=== PATIENT | male | born 1970 | race Caucasian/White ===

== ENCOUNTER → 2017-08-09 07:53 | Outpatient (CLI) | payer OTHER, SELFPAY ==
[2017-07-25 08:38] VITALS: BMI 38.0
--- NOTE | 2017-08-09 08:01 | PCM.CR.ITP ---
Exercise - Initial Assessment - Visit Date of Eval: 08/09/17 Session #:: 0 - initial evaluation - Stages of Change Stages of Change:: Action - Exercise Prescription Mode:: Treadmill, Rower, Airdyne, NuStep Angina with exercise?: No Target Heart Rate:: 122-131 70-75% Max PHR - Hypertension Do any of the following apply?: Yes Peak Exercise Blood Pressure:: 146/88 - Intervention Home Exercise/Activity Goal:: Moderate Exercise 30 min/day x 5 days/wk - Education Goals:: Warm-up, RPE ROSALBA Scale, S/S, Safe Exercise, Self-Monitoring - Exercise Program Goals Exercise Program Goals: Aerobic Activity >30 min Nutrition - Initial Assessment - Program Goals Nutrition Program Goals: LDL <70. Total Cholesterol <200. HDL >45. Triglycerides <150. HgbA1C <7%. BMI <25 - Visit Date of Assessment:: 08/09/17 - initial evaluation - Stages of Change Stages of Change:: Action - Lipids Total Cholesterol (mg/dL) Goal = less than 200 mg/dL: 182 - 07/24/2017 HDL Cholesterol (mg/dL) Goal = less than 45 mg/dL: 30 LDL Cholesterol (mg/dL) Goal = less than 70 mg/dL: 108 Triglycerides (mg/dL) Goal = less than 150 mg/dL: 220 - Diabetes Diabetes:: No Hgb A1C: wnl - Weight Management Height: 5 ft 9 in Weight:: 117.163 kg Body Fat %:: 38.1 - Intervention Referral to dietitian:: Yes - Patient could possibly benefit from structure weight loss program. Will attend diet classes:: Yes - Education Gave educational materials for:: Healthy eating Nutrition - 30-Day Assessment - Program Goals Nutrition Program Goals: LDL <70. Total Cholesterol <200. HDL >45. Triglycerides <150. HgbA1C <7%. BMI <25 - Diabetes Diabetes:: No Hgb A1C: wnl Nutrition - 60-Day Assessment - Program Goals Nutrition Program Goals: LDL <70. Total Cholesterol <200. HDL >45. Triglycerides <150. HgbA1C <7%. BMI <25 - Diabetes Diabetes:: No Hgb A1C: wnl Nutrition - 90-Day Assessment - Program Goals Nutrition Program Goals: LDL <70. Total Cholesterol <200. HDL >45. Triglycerides <150. HgbA1C <7%. BMI <25 - Diabetes Diabetes:: No Hgb A1C: wnl Nutrition - Final Assessment - Program Goals Nutrition Program Goals: LDL <70. Total Cholesterol <200. HDL >45. Triglycerides <150. HgbA1C <7%. BMI <25 - Diabetes Diabetes:: No Hgb A1C: wnl Tobacco - Initial Assessment - Program Goals Tobacco Program Goals: Complete smoking cessation. Attend education classes. Improve Knowledge Test score - Stage of Change Stages of Change:: Action - Learning Barriers Learning Barriers: Ready to Learn - Family Support Do you have family support?: Yes - Tobacco Use Tobacco Use: Non-smoker Do you use smokeless tobacco?: No - Intervention Smoking Cessation Referral:: No Individual Education/Counseling:: No Education Schedule Given:: Yes - Education Gave educational material for:: Coronary artery disease, Risk factors, Sexuality, Medical compliance, Cardiac A&P, Angina signs & symptoms Psychosocial - Initial Assess - Target Goals Target Goals: Assess presence or absence of depression. Using a valid screening tool, maximizes coping skills. Positive support system - Stages of Change Stages of Change:: Action - Psychosocial Test Tool Used:: HANDS Depression Questionnaire - Intervention PS - Interventions: Yes Attend Stress Management Classes, No Referral to Mental Health, No Referral to [facility] Case Management, No Referral to Physician, No Uses Stress Management Skills - Education Gave educational materials for:: Coping techniques, Signs & symptoms of depression, Stress management, Relaxation techniques - Patient/Program Goal Preventative Medication(s):: Aspirin, Clopidogrel, Beta andree, Statin/lipid - Assistive Devices Assistive Devices:: None Fall Risk Assessed:: Yes Patient Health Questionnaire 30-Day Re-eval Assessment 1. Little interest or pleasure in doing things: Not at all 2. Feeling down, depressed, or hopeless: Not at all 3. Trouble falling or staying asleep, or sleeping too much: Several days 4. Feeling tired or having little energy: Several days 5. Poor appetite or overeating: Not at all 6. Feeling bad about yourself -- or that you are a failure or have let yourself or your family down: Not at all 7. Trouble concentrating on things, such as reading the newspaper or watching television: Not at all 8. Moving or speaking so slowly that other people could have noticed. Or the opposite - being so fidgety or restless that you have been moving around a lot more than usual: Not at all 9. Thoughts that you would be better off , or of hurting yourself in some way: Not at all How difficult have these problems made it for you to do your work, take care of things at home, or get along with other people?: Not difficult at all Total Score: 2 Knowledge Test - Check your knowledge Initial The #1 cause of in the [place] each year is:: Heart disease Which of the following is a common treatment for heart disease?: All of the above The arteries that feed the heart are called:: Coronary arteries What disease increases your risk for heart disease?: Diabetes What food product raises blood cholesterol level the most?: Saturated fat The bad cholesterol in the blood is called:: LDL Hypertension is another word for:: High blood pressure A blood pressure reading of 148/88 is considered normal.: False Exercise will only benefit your health when your heart rate reaches a target level.: True Self-Efficacy 30-Day Re-eval Assessment We would like to know how confident you are in doing certain activities. Please select your confidence level for:: Select your confidence level for the following using the scale 1-10 where 1 is not at all confident and 10 is totally confident. Your score is the average of all 6 responses. Fatigue: How confident are you that you can keep the fatigue caused by your disease from interfering with the things you want to do? Select Number: 9 Physical Discomfort or Pain: How confident are you that you can keep the physical discomfort or pain of your disease from interfering with the things you want to do? Select Number: 9 Emotional Distress: How confident are you that you can keep the emotional distress caused by your disease from interfering with the things you want to do? Select Number: 9 Other Symptoms or Health Problems: How confident are you that you can keep other symptoms or health problems from interfering with the things you want to do? Select Number: 7 Different Tasks and Activities: How confident are you that you can do the different tasks and activities needed to manage your health condition so as to reduce your need to see a doctor? Select Number: 9 Medication: How confident are you that you can do things other than just taking medication to reduce how much your illness affects your everyday life? Select Number: 9 Total Score:: 8 Nutrition Survey - Nutrition Survey Instructions Scoring Instructions: Scoring is as follows: Yes = 1 points. No = 0 point. Patient score that is >/=12 is considered to be at potential nutritional risk and could benefit from a referral to a registered dietitian. - Nutrition Survey Initial Have you lost >10 lbs over the past 2 months without trying?: No Are you following a special diet at home for diabetes, low fat, or low salt?: Yes - Just joined weight watchers. Are you interested in meeting with a dietitian for help understanding your diet?: Yes Do you eat less than 3 meals a day?: No Do you eat fatty meats (bingham, sausage, ribs, etc), fried foods, desserts, large amounts of salad dressings, margarine, butter, or cheese most days?: Yes Do you have food allergies? [Enter types in comment field]: No Do you eat in restaurants more than 3 times a week?: No Do you season food with salt, seasoning salt, or garlic salt?: Yes Do you used canned, boxed, frozen meals, or soups, seasoning packets?: No Total Score:: 4 Cardiac Rehabilitation Goals - Cardiac Rehab Goals Cardiac Rehabilitation Goals: 1. Maintain the individual as the primary focus of care. 2. To improve the patient's quality of life. 3. Identification of cardiac risk factors and provide cardiac risk factor management. 4. Enhance the psychosocial status of the patient. 5. Reconditioning enough to allow the patient to resume customary activities. 6. Control symptoms of cardiac disease - Scale Scale for measuring improvement of personal goals: Enter appropriate number in Comments. 2 = Unchanged. 3 = Slightly Better. 4 = Moderate Improvement. 5 = Met my Goal 30-Day Re-eval Assessment Personal Goals: 30-day Re-assessment: Improve energy level, Participate in home exercise program, Improve muscle strength and endurance, Improve diet and eating habits (eat healthier), Control risk factors (learn risk factor modification)
--- NOTE | 2017-08-09 08:02 | PCM.CR.HP2 ---
CR - History & Physical - General Arrival date:: 08/09/17 Arrival time:: 08:02 Date of Admission: 08/09/17 Referring Physician: Dr. Juan A Jean-Baptiste Primary Diagnosis: Unstable angina w/PCI-NEGRITO 07/24/2017 - History of Present Cardiac Event Onset Date: Enter Onset Date of cardiac illnesses in Comment field below MO:: Yes - NSTEMI 07/24/2017 PTCA:: Yes - 07/24/2017 Type of Symptoms:: Patient described mid sternal pain, described as a heaviness, and cold sweat. Interventions with present event:: Admitted to floor did blood work and then scheduled a heart cath. Were there any complications?: none - Medications Home Medications: Ambulatory Orders Medication Instructions Recorded Amiodarone HCl [Cordarone] 200 mg PO TID #90 tab 07/26/17 Aspirin E.C. [Ecotrin] 81 mg PO DAILY@0800 tab 07/26/17 Atorvastatin Calcium [Lipitor] 80 mg PO QHS #30 tab 07/26/17 Carvedilol [Coreg (Beta Janett)] 6.25 mg PO BID #60 tab 07/26/17 Isosorbide Mononitrate [Imdur] 30 mg PO DAILY #30 tab 07/26/17 Lisinopril [Zestril] 10 mg PO DAILY #30 tab 07/26/17 Nitroglycerin [Nitrostat] 0.4 mg SUBLINGUAL Q5M PRN #20 tab 07/26/17 Temazepam [Restoril] 15 mg PO QHS PRN PRN #30 cap 07/26/17 Ticagrelor [Brilinta] 90 mg PO BID #60 tab 07/26/17 - Allergies Allergies/Adverse Reactions: Allergies No Known Allergies Allergy (Verified 07/23/17 19:18) - Sleep Disorder Evaluation Hx of Sleep Apnea: No Do you snore loudly (louder than talking or can be heard through closed doors)?: Yes - has minimized since procedure but has not completely gone away. Do you often feel tired/ fatigued/ sleepy during daytime?: No Has anyone observed you stop breathing during sleep?: Yes History of Hypertension (for STOP score): Yes - chronic history of HTN. STOP Results: Positive Advanced Directives - Advanced Directives Power of Boiler Attendant: No Living Will: No Advance Directives Information Provided: Yes - on admission Advance Directives on File: No DNR Order?:: No Past Medical History - Problems and Co-Morbidities Problems & Co-Morbidities: Dyslipidemia, Obesity, Hypertension, - - unstable angina, elevated cardiac enzymes - Other Other: Vision/Eye Problems - wears contact lenses - Cardiology Procedures/Interventions Cardiology Procedures/Interventions: Heart Catheterization, Echocardiogram - Past Surgical History Surgical History: - - [place] teeth extraction. and colonoscopy procedure. - Family History Summary Additional Family History: family history diabetes, cardiac tumor that required open heart surgery. Review of Systems - Review of Systems Hints: Right click = Denies (Slash). Left click = Reports ([place]) Review of Present Symptoms: Reports: Shortness of Breath with Exertion - if exert myself to much., Dizziness/Lightheadedness - a little possible due to new medications, Appetite - Normal, Appetite - Special Diet - on weight watchers program with ., Sleep - Normal. Denies: Shortness of Breath at Rest, Angina, Fatigue, Heart Arrhythmia/Irregularities, Sexual Changes Risk Factor Assessment - Chief Complaint Chief Complaint: The patient is a male 47 year old who presents to cardiac rehab today under the care of Dr. Juan A Jean-Baptiste following recent NSTEMI and PCI-NEGRITO on 07/24/2017. - Pulse Pulse Rate: 74 - SpO2 95% - Hypertension Blood Pressure Sitting - Right Arm: 112/66 Blood Pressure Sitting - Left Arm: 122/78 - Blood Cholesterol/Lipids Total Cholesterol (mg/dL) Goal = less than 200 mg/dL: 182 - 07/24/2017 HDL Cholesterol (mg/dL) Goal = less than 40 mg/dL: 30 LDL Cholesterol (mg/dL) Goal = less than 70 mg/dL: 108 Triglycerides (mg/dL) Goal = less than 150 mg/dL: 220 - Diabetes Nutrition Referral for Diabetes: No - Obesity Height: 5 ft 9 in Weight:: 117.163 kg Weight in Pounds: 258.3 lbs Body Mass Index (BMI): 38.1 Nutritional Referral for Obesity: Yes - Patient could benefit from a structured weight loss program. - Physical Inactivity Physical Inactivity: Recreational activity - walking up to three times daily up to 15-20 minutes. - Risk Stratification Risk Guidelines: Lowest Risk: Risk Factor for Smoking, Risk Factor for Dyslipidemia, Risk Factor for Diabetes, Risk Factor for Hypertension, Risk Factor for Sedentary Lifestyle, Risk Factor for Depression, Highest Risk: Risk Factor for Obesity - For Smoking Smoking Risk Guidelines: Smoking Low Risk: None or quit greater than 6 months ago. Smoking Moderate Risk: Smoker or quit 6 months or less ago. Smoking High Risk: Smoker - For Dyslipidemia Dyslipidemia Risk Guidelines: Low Risk: Moderate Risk: High Risk: 15-25% fat 25.1-29% fat >/= 30% fat. <7% sat fat 7-9% sat fat >9% sat fat. <150 mg chol 150-299 mg chol >/= 300 mg chol. LDL <100 LDL 100-129 LDL >/= 130. Chol/HDL ratio <5.0 Chol/HDL ratio 5.0-6.0 Chol/HDL ratio >6.0. Triglycerides <100 Triglycerides 100-149 Triglycerides >/= 150 - For Diabetes Mellitus Diabetes Risk Guidelines: Diabetes Low Risk: HgA1c <6.5% and/or FBG <120. Diabetes Moderate Risk: HgA1c 6.6-7.9% and/or FBG 120-180. Diabetes High Risk: HgA1c >/= 8% and/or FBG >180 - For Obesity/Overweight Obesity/Overweight Risk Guidelines: Obesity Low Risk: BMI <25.0. Obesity Moderate Risk: BMI 25-29.9. Obesity High Risk: BMI >/= 30.0 - For Hypertension Hypertension Risk Guidelines: Hypertension Low Risk: Systolic <120 and Diastolic <80. Hypertension Moderate Risk: Systolic 120-139 and Diastolic 80-89. Hypertension High Risk: Systolic >/= 140 and Diastolic >/= 90 - For Sedentary Lifestyle Sedentary Lifestyle Risk Guidelines: Sedentary Lifestyle Low Risk: >/= 1,500 kcal/week. Sedentary Lifestyle Moderate Risk: 700-1,499 kcal/week. Sedentary Lifestyle High Risk: < 700 kcal/week - For Depression Depression Risk Guidelines: Depression Low Risk: Not clinically depressed. Depression Moderate Risk: Mildly depressed. Depression High Risk: Clinically depressed Social History - Smoking History Smoking Status: Never smoker Hx Tobacco Use: No Hx Smoking Exposure: No - Alcohol Use Alcohol Usage: No - Substance Abuse Hx Substance Use: No - Occupation Occupation (List type of work in comments):: Employed Hours worked per day:: 8 Returned to work on:: 08/01/17 - Hobbies, Recreation, Social Activities Hobbies: Watch TV, Hiking, Walking, Other - video games, TV, Recreational Activities: I am able to engage in all my recreational activities, I am able to engage in most, but not all activities Marital Status - Status Marital Status: - Current Living Arrangements Living Environment:: Spouse - Children How many children do you have?: 0 - Safety Do you feel safe in your surroundings?: Yes
--- NOTE | 2017-08-09 08:13 | CR.HP_ITS ---
CR - History & Physical - General Arrival date:: 08/09/17 Arrival time:: 08:02 Date of Admission: 08/09/17 Referring Physician: Dr. Juan A Jean-Baptiste Primary Diagnosis: Unstable angina w/PCI-NEGRITO 07/24/2017 - History of Present Cardiac Event Onset Date: Enter Onset Date of cardiac illnesses in Comment field below MD:: Yes - NSTEMI 07/24/2017 PTCA:: Yes - 07/24/2017 Type of Symptoms:: Patient described mid sternal pain, described as a heaviness , and cold sweat. Interventions with present event:: Admitted to floor did blood work and then scheduled a heart cath. Were there any complications?: none - Medications Home Medications: Ambulatory Orders Medication Instructions Recorded Amiodarone HCl [Cordarone] 200 mg PO TID #90 tab 07/26/17 Aspirin E.C. [Ecotrin] 81 mg PO DAILY@0800 tab 07/26/17 Atorvastatin Calcium [Lipitor] 80 mg PO QHS #30 tab 07/26/17 Carvedilol [Coreg (Beta Janett)] 6.25 mg PO BID #60 tab 07/26/17 Isosorbide Mononitrate [Imdur] 30 mg PO DAILY #30 tab 07/26/17 Lisinopril [Zestril] 10 mg PO DAILY #30 tab 07/26/17 Nitroglycerin [Nitrostat] 0.4 mg SUBLINGUAL Q5M PRN #20 tab 07/26/17 Temazepam [Restoril] 15 mg PO QHS PRN PRN #30 cap 07/26/17 Ticagrelor [Brilinta] 90 mg PO BID #60 tab 07/26/17 - Allergies Allergies/Adverse Reactions: Allergies No Known Allergies Allergy (Verified 07/23/17 19:18) - Sleep Disorder Evaluation Hx of Sleep Apnea: No Do you snore loudly (louder than talking or can be heard through closed doors)? : Yes - has minimized since procedure but has not completely gone away. Do you often feel tired/ fatigued/ sleepy during daytime?: No Has anyone observed you stop breathing during sleep?: Yes History of Hypertension (for STOP score): Yes - chronic history of HTN. STOP Results: Positive Advanced Directives - Advanced Directives Power of School Bus Driver/Teacher Assistant: No Living Will: No Advance Directives Information Provided: Yes - on admission Advance Directives on File: No DNR Order?:: No Past Medical History - Problems and Co-Morbidities Problems & Co-Morbidities: Dyslipidemia, Obesity, Hypertension, - - unstable angina, elevated cardiac enzymes - Other Other: Vision/Eye Problems - wears contact lenses - Cardiology Procedures/Interventions Cardiology Procedures/Interventions: Heart Catheterization, Echocardiogram - Past Surgical History Surgical History: - - [place] teeth extraction. and colonoscopy procedure. - Family History Summary Additional Family History: family history diabetes, cardiac tumor that required open heart surgery. Review of Systems - Review of Systems Hints: Right click = Denies (Slash). Left click = Reports ([place]) Review of Present Symptoms: Reports: Shortness of Breath with Exertion - if exert myself to much., Dizziness/Lightheadedness - a little possible due to new medications, Appetite - Normal, Appetite - Special Diet - on weight watchers program with ., Sleep - Normal. Denies: Shortness of Breath at Rest, Angina , Fatigue, Heart Arrhythmia/Irregularities, Sexual Changes Risk Factor Assessment - Chief Complaint Chief Complaint: The patient is a male 47 year old who presents to cardiac rehab today under the care of Dr. Juan A Jean-Baptiste following recent NSTEMI and PCI -NEGRITO on 07/24/2017. - Pulse Pulse Rate: 74 - SpO2 95% - Hypertension Blood Pressure Sitting - Right Arm: 112/66 Blood Pressure Sitting - Left Arm: 122/78 - Blood Cholesterol/Lipids Total Cholesterol (mg/dL) Goal = less than 200 mg/dL: 182 - 07/24/2017 HDL Cholesterol (mg/dL) Goal = less than 40 mg/dL: 30 LDL Cholesterol (mg/dL) Goal = less than 70 mg/dL: 108 Triglycerides (mg/dL) Goal = less than 150 mg/dL: 220 - Diabetes Nutrition Referral for Diabetes: No - Obesity Height: 5 ft 9 in Weight:: 117.163 kg Weight in Pounds: 258.3 lbs Body Mass Index (BMI): 38.1 Nutritional Referral for Obesity: Yes - Patient could benefit from a structured weight loss program. - Physical Inactivity Physical Inactivity: Recreational activity - walking up to three times daily up to 15-20 minutes. - Risk Stratification Risk Guidelines: Lowest Risk: Risk Factor for Smoking, Risk Factor for Dyslipidemia, Risk Factor for Diabetes, Risk Factor for Hypertension, Risk Factor for Sedentary Lifestyle, Risk Factor for Depression, Highest Risk: Risk Factor for Obesity - For Smoking Smoking Risk Guidelines: Smoking Low Risk: None or quit greater than 6 months ago. Smoking Moderate Risk: Smoker or quit 6 months or less ago. Smoking High Risk: Smoker - For Dyslipidemia Dyslipidemia Risk Guidelines: Low Risk: Moderate Risk: High Risk: 15-25% fat 25.1-29% fat >/= 30% fat. <7% sat fat 7-9% sat fat >9% sat fat. <150 mg chol 150-299 mg chol >/= 300 mg chol. LDL <100 LDL 100-129 LDL >/= 130. Chol/HDL ratio <5.0 Chol/HDL ratio 5.0-6.0 Chol/HDL ratio >6.0. Triglycerides <100 Triglycerides 100-149 Triglycerides >/= 150 - For Diabetes Mellitus Diabetes Risk Guidelines: Diabetes Low Risk: HgA1c <6.5% and/or FBG <120. Diabetes Moderate Risk: HgA1c 6.6-7.9% and/or FBG 120-180. Diabetes High Risk: HgA1c >/= 8% and/or FBG >180 - For Obesity/Overweight Obesity/Overweight Risk Guidelines: Obesity Low Risk: BMI <25.0. Obesity Moderate Risk: BMI 25-29.9. Obesity High Risk: BMI >/= 30.0 - For Hypertension Hypertension Risk Guidelines: Hypertension Low Risk: Systolic <120 and Diastolic <80. Hypertension Moderate Risk: Systolic 120-139 and Diastolic 80-89. Hypertension High Risk: Systolic >/= 140 and Diastolic >/= 90 - For Sedentary Lifestyle Sedentary Lifestyle Risk Guidelines: Sedentary Lifestyle Low Risk: >/= 1 ,500 kcal/week. Sedentary Lifestyle Moderate Risk: 700-1,499 kcal/week. Sedentary Lifestyle High Risk: < 700 kcal/week - For Depression Depression Risk Guidelines: Depression Low Risk: Not clinically depressed. Depression Moderate Risk: Mildly depressed. Depression High Risk: Clinically depressed Social History - Smoking History Smoking Status: Never smoker Hx Tobacco Use: No Hx Smoking Exposure: No - Alcohol Use Alcohol Usage: No - Substance Abuse Hx Substance Use: No - Occupation Occupation (List type of work in comments):: Employed Hours worked per day:: 8 Returned to work on:: 08/01/17 - Hobbies, Recreation, Social Activities Hobbies: Watch TV, Hiking, Walking, Other - video games, TV, Recreational Activities: I am able to engage in all my recreational activities, I am able to engage in most, but not all activities Marital Status - Status Marital Status: - Current Living Arrangements Living Environment:: Spouse - Children How many children do you have?: 0 - Safety Do you feel safe in your surroundings?: Yes
[2017-08-09 08:30] VITALS: BP 112/66; BP 122/78; PULSE 74; BMI 38.1
[2017-08-09 09:11] VITALS: BP 146/88
== END ==
PROVIDERS: Family Provider Family Medicine; PCP Family Medicine; Visit Provider Internal Medicine Cardiovascular Disease
DX: I25.2 Old myocardial infarction (principal)

== ENCOUNTER → 2017-09-17 09:01 | Outpatient (CLI) | payer OTHER, SELFPAY ==
[2017-07-25 08:38] VITALS: BMI 38.0
[2017-09-17 10:36] LABS: Hemoglobin A1c 5.4 % (4.2-6.3)
[2017-09-17 10:42] LABS: AST(SGOT) 32 U/L (15-37); Alanine Aminotransfer ALT/SGPT 56 U/L (16-61); Albumin, Serum 3.8 g/dL (3.2-5.0); Alkaline Phosphatase 136 U/L (45-117); Bilirubin, Direct 0.14 mg/dL (0.00-0.30); Cholesterol 84 mg/dL (200); Globulin 3.4 g/dL (2.2-4.2); High Density Lipoprotein 32 mg/dL; Protein, Total 7.2 g/dL (6.4-8.2); Thyroid Stim Hormone (TSH) 3.92 uIU/mL (0.358-3.74); Triglycerides 108 mg/dL; Very Low Density Lipoprotein 22 mg/dL (5-40)
== END ==
PROVIDERS: Family Provider Family Medicine; PCP Family Medicine; Visit Provider Family Medicine
DX: E78.5 Hyperlipidemia, unspecified (principal); I10 Essential (primary) hypertension; R73.01 Impaired fasting glucose; I25.10 Atherosclerotic heart disease of native coronary artery without angina pectoris
CPT/HCPCS: 36415; 80061; 80076; 83036; 84443

== ENCOUNTER → 2017-11-24 11:21 | Outpatient (CLI) | payer OTHER, SELFPAY ==
[2017-07-25 08:38] VITALS: BMI 38.0
== END ==
PROVIDERS: Family Provider Family Medicine; PCP Family Medicine; Visit Provider Physician Assistant Medical
DX: I47.2 Ventricular tachycardia (principal)
CPT/HCPCS: 93225; 93226

== ENCOUNTER → 2018-05-29 10:22 | Outpatient (CLI) | payer OTHER, SELFPAY ==
[2017-07-25 08:38] VITALS: BMI 38.0
[2018-05-29 09:42] VITALS: BMI 36.9
[2018-05-29 11:49] LABS: AST(SGOT) 28 U/L (15-37); Alanine Aminotransfer ALT/SGPT 59 U/L (16-61); Albumin, Serum 3.6 g/dL (3.2-5.0); Alkaline Phosphatase 157 U/L (45-117); Bilirubin, Direct 0.15 mg/dL (0.00-0.30); Cholesterol 110 mg/dL (200); Globulin 3.4 g/dL (2.2-4.2); High Density Lipoprotein 29 mg/dL; Triglycerides 154 mg/dL; Very Low Density Lipoprotein 31 mg/dL (5-40)
== END ==
PROVIDERS: Internal Medicine Cardiovascular Disease; Family Provider Family Medicine; PCP Family Medicine; Referring Provider Physician Assistant Medical; Visit Provider Physician Assistant Medical
DX: I25.10 Atherosclerotic heart disease of native coronary artery without angina pectoris (principal); I10 Essential (primary) hypertension; E78.00 Pure hypercholesterolemia, unspecified
CPT/HCPCS: 36415; 80061; 80076

== ENCOUNTER → 2018-12-23 08:49 | Outpatient (CLI) | payer OTHER, SELFPAY ==
[2017-07-25 08:38] VITALS: BMI 38.0
[2018-12-18 09:07] VITALS: BMI 38.2
[2018-12-23 09:49] LABS: AST(SGOT) 26 U/L (15-37); Alanine Aminotransfer ALT/SGPT 49 U/L (16-61); Albumin, Serum 3.4 g/dL (3.2-5.0); Alkaline Phosphatase 164 U/L (45-117); Bilirubin, Direct 0.13 mg/dL (0.00-0.30); Cholesterol 76 mg/dL (200); Globulin 3.4 g/dL (2.2-4.2); High Density Lipoprotein 28 mg/dL; Protein, Total 6.8 g/dL (6.4-8.2); Triglycerides 141 mg/dL; Very Low Density Lipoprotein 28 mg/dL (5-40)
== END ==
PROVIDERS: Family Provider Family Medicine; PCP Family Medicine; Referring Provider Internal Medicine Cardiovascular Disease; Visit Provider Internal Medicine Cardiovascular Disease
DX: E78.00 Pure hypercholesterolemia, unspecified (principal)
CPT/HCPCS: 36415; 80061; 80076

== ENCOUNTER → 2019-07-02 08:20 | Outpatient (CLI) | payer OTHER, SELFPAY ==
[2017-07-25 08:38] VITALS: BMI 38.0
[2019-06-29 14:24] VITALS: BMI 39.7
[2019-07-02 09:34] LABS: AST(SGOT) 33 U/L (15-37); Alanine Aminotransfer ALT/SGPT 63 U/L (16-61); Albumin, Serum 3.8 g/dL (3.2-5.0); Alkaline Phosphatase 160 U/L (45-117); Bilirubin, Direct 0.12 mg/dL (0.00-0.30); Cholesterol 134 mg/dL (200); Globulin 3.5 g/dL (2.2-4.2); High Density Lipoprotein 33 mg/dL; Protein, Total 7.3 g/dL (6.4-8.2); Triglycerides 239 mg/dL; Very Low Density Lipoprotein 48 mg/dL (5-40)
== END ==
PROVIDERS: Family Provider Family Medicine; PCP Family Medicine; Referring Provider Physician Assistant Medical; Visit Provider Physician Assistant Medical
DX: I21.4 Non-ST elevation (NSTEMI) myocardial infarction (principal); I10 Essential (primary) hypertension; I25.10 Atherosclerotic heart disease of native coronary artery without angina pectoris; E78.00 Pure hypercholesterolemia, unspecified
CPT/HCPCS: 36415; 80061; 80076

== ENCOUNTER → 2020-03-14 | Outpatient (CLI) | payer OTHER, SELFPAY ==
[2017-07-25 08:38] VITALS: BMI 38.0
[2020-03-14 09:12] VITALS: BMI 38.7
[2020-03-14 11:02] LABS: AST(SGOT) 28 U/L (15-37); Alanine Aminotransfer ALT/SGPT 47 U/L (16-61); Albumin, Serum 3.9 g/dL (3.2-5.0); Alkaline Phosphatase 160 U/L (45-117); Bilirubin, Direct 0.22 mg/dL (0.00-0.30); Cholesterol 123 mg/dL (200); Globulin 3.5 g/dL (2.2-4.2); High Density Lipoprotein 31 mg/dL; Protein, Total 7.4 g/dL (6.4-8.2); Triglycerides 157 mg/dL; Very Low Density Lipoprotein 31 mg/dL (5-40)
== END | disposition home or self-care (01) ==
LOC: LAB 09:46
PROVIDERS: PCP Family Medicine; Referring Provider Internal Medicine Cardiovascular Disease; Visit Provider Internal Medicine Cardiovascular Disease
DX: E78.00 Pure hypercholesterolemia, unspecified (principal)
CPT/HCPCS: 36415; 80061; 80076

== ENCOUNTER → 2021-03-06 09:06 | Outpatient (CLI) | payer OTHER, SELFPAY ==
[2017-07-25 08:38] VITALS: BMI 38.0
[2021-03-06 09:47] LABS: AST(SGOT) 47 U/L (15-37); Alanine Aminotransfer ALT/SGPT 55 U/L (16-61); Albumin, Serum 3.6 g/dL (3.2-5.0); Alkaline Phosphatase 114 U/L (45-117); Bilirubin, Direct 0.07 mg/dL (0.00-0.30); Cholesterol 223 mg/dL (200); Globulin 3.9 g/dL (2.2-4.2); High Density Lipoprotein 31 mg/dL; Protein, Total 7.5 g/dL (6.4-8.2); Triglycerides 277 mg/dL; Very Low Density Lipoprotein 55 mg/dL (5-40)
== END ==
LOC: LAB 09:07
PROVIDERS: PCP Family Medicine; Referring Provider Internal Medicine Cardiovascular Disease; Visit Provider Internal Medicine Cardiovascular Disease
DX: E78.00 Pure hypercholesterolemia, unspecified (principal)
CPT/HCPCS: 36415; 80061; 80076

== ENCOUNTER → 2022-03-22 | Outpatient (CLI) | payer OTHER, SELFPAY ==
[2017-07-25 08:38] VITALS: BMI 38.0
[2022-03-22 13:08] LABS: AST(SGOT) 29 U/L (15-37); Alanine Aminotransfer ALT/SGPT 64 U/L (16-61); Albumin, Serum 3.7 g/dL (3.2-5.0); Alkaline Phosphatase 172 U/L (45-117); Bilirubin, Direct 0.12 mg/dL (0.00-0.30); Cholesterol 95 mg/dL (200); Globulin 3.7 g/dL (2.2-4.2); High Density Lipoprotein 29 mg/dL; Protein, Total 7.4 g/dL (6.4-8.2); Triglycerides 111 mg/dL; Very Low Density Lipoprotein 22 mg/dL (5-40)
== END | disposition home or self-care (01) ==
LOC: LAB 09:46
PROVIDERS: PCP Family Medicine; Referring Provider Internal Medicine Cardiovascular Disease; Visit Provider Internal Medicine Cardiovascular Disease
DX: I25.10 Atherosclerotic heart disease of native coronary artery without angina pectoris (principal); E78.00 Pure hypercholesterolemia, unspecified; Z95.5 Presence of coronary angioplasty implant and graft
CPT/HCPCS: 36415; 80061; 80076

== ENCOUNTER → 2023-07-08 | Outpatient (CLI) | payer BC, SELFPAY ==
[2017-07-25 08:38] VITALS: BMI 38.0
--- OUTSIDE RECORDS SUMMARY | 2023-07-08 09:45 | XMS RPT_ITS | CCD ---
Author Name Unknown Address [address] [place] [address] Organization [facility] Care Team Providers Care Substation Operator Automatic Name Role Phone Anneliese MAJOR, Jerry Monterroso Unavailable [phone] Stacey Joseph Unavailable Unavailable Medications Completed/Discontinued Medications Medication Drug Class(es) Dates Sig (Normalized) Sig (Original) lisinopril 20 mg oral tablet (2 sources) Angiotensin Converting Enzyme Inhibitor Start: 02-14-2017 take 1 tablet by mouth once daily LISINOPRIL 20 MG TABS One tablet by mouth daily LISINOPRIL [id number] Jerry Coy MD Problems Active Problems Problem Classification Problem Date Documented Date Episodic/Chronic Esophageal disorders (2 sources) Gastroesophageal reflux disease; Translations: [Gastro-esophageal reflux disease without esophagitis] Onset: 02-14-2017 02-14-2017 Chronic Essential hypertension (2 sources) Hypertensive disorder; Translations: [Essential (primary) hypertension] Onset: 02-14-2017 02-14-2017 Chronic Past or Other Problems Problem Classification Problem Date Documented Da te Episodic/Chronic Residual codes; unclassified (2 sources) Family history of cancer of colon; Translations: [Family history of malignant neoplasm of digestive organs] Onset: 02-14-2017 02-14-2017 Episodic Results Test Name Value Interpretation Reference Range Facil ity Vital Signs Date Time Vital Sign Value Performing Clinician Facility 02-14-2017 08:45-0400 BMI (Body Mass Index) 35.87 kg/m2 Jerry Coy MD [facility] Work Phone: 02-14-2017 08:45-0400 BP Diastolic 98 mm[Hg] Jerry Coy MD [facility] Work Phone: 02-14-2017 08:45-0400 BP Systolic 156 mm[Hg] Jerry Coy MD [facility] Work Phone: 02-14-2017 08:45-0400 Height 177.8 cm Jerry Coy MD [facility] Work Phone: 02-14-2017 08:45-0400 Pulse (Heart Rate) 70 /min Jerry Coy MD [facility] [facility] Work Phone: 02-14-2017 08:45-0400 Respiratory Rate 18 /min Jerry Coy MD [facility] [employer] Work Phone: 02-14-2017 08:45-0400 Weight 113.4 kg Jerry Coy MD [facility] [employer] [facility] Work Phone: Plan of Treatment Date Care Activity Detail Author Start: 03-04-2017 End: 03-04-2017 Appointment Appointment [facility] Work Phone: Start: 02-14-2017 End: 02-14-2017 Appointment Appointment [facility] Work Phone: Start: 02-14-2017 End: 02-15-2017 Colonoscopy flx dx w/collj spec when pfrmd Colonoscopy [facility] [employer] Work Phone: Summary Purpose Family History No Family History Records Found Advance Directives No Advanced Directives Records Found Additional Source Comments (unrecognized sect ion and content) No Status Records Found INFORMATION SOURCE (unrecogn ized section and content) FOR RECORDS PERTAINING TO PATIENTS WHO ARE OR HAVE BEEN ENROLLED IN A CHEMICAL DEPENDENCY/SUBSTANCEABUSE PROGRAM, SOME INFORMATION MAY BE OMITTED. This clinical summary was aggregated from multiple sources. Caution should be exercised in using it in the provision of clinical care. This summary normalizes information from multiple sources, and as a consequence, information in this document may materially change the coding, format and clinical context of patient data. In addition, data may be omitted in some cases. CLINICAL DECISIONS SHOULD BE BASED ON THE PRIMARY CLINICAL RECORDS. [facility] [employer] [facility]. provides no warranty or guarantee of the accuracy or completeness of information in this document.
[2023-07-08 09:59] LABS: AST(SGOT) 42 U/L (15-37); Alanine Aminotransfer ALT/SGPT 69 U/L (16-61); Albumin, Serum 3.7 g/dL (3.2-5.0); Alkaline Phosphatase 160 U/L (45-117); Anion Gap 4 (5-15); BUN 14 mg/dL (7-18); BUN/Creat Ratio 16.6 RATIO (10-20); Calcium,Total 9.3 mg/dL (8.5-10.1); Chloride 105 mmol/L (98-107); Cholesterol 129 mg/dL (200); Creatinine, Serum 0.84 mg/dL (0.70-1.30); EST Glomerular Filtration Rate 102 mL/min (>60); Est Glom Filt Rate - Afr Amer 124 mL/min (>60); Globulin 3.7 g/dL (2.2-4.2); Glucose 325 mg/dL (74-106); High Density Lipoprotein 31 mg/dL; Potassium 4.1 mmol/L (3.5-5.1); Protein, Total 7.4 g/dL (6.4-8.2); Sodium Level 136 mmol/L (136-145); Triglycerides 291 mg/dL; Very Low Density Lipoprotein 58 mg/dL (5-40)
== END | disposition home or self-care (01) ==
PROVIDERS: PCP Family Medicine; Referring Provider Nurse Practitioner Family; Visit Provider Nurse Practitioner Family
DX: E78.00 Pure hypercholesterolemia, unspecified (principal); I10 Essential (primary) hypertension; Z95.5 Presence of coronary angioplasty implant and graft
CPT/HCPCS: 36415; 80048; 80061; 80076

== ENCOUNTER → 2024-04-10 | Outpatient (CLI) | payer BC, SELFPAY ==
[2017-07-25 08:38] VITALS: BMI 38.0
[2024-04-10 12:56] LABS: Hemoglobin A1c 8.3 % (3.8-5.6)
[2024-04-10 13:07] LABS: AST(SGOT) 38 U/L (15-37); Alanine Aminotransfer ALT/SGPT 80 U/L (16-61); Albumin, Serum 3.7 g/dL (3.2-5.0); Alkaline Phosphatase 156 U/L (45-117); Anion Gap 8 (5-15); BUN 16 mg/dL (7-18); BUN/Creat Ratio 20.6 RATIO (10-20); Bilirubin, Direct 0.21 mg/dL (0.00-0.30); Calcium,Total 9.1 mg/dL (8.5-10.1); Chloride 104 mmol/L (98-107); Cholesterol 94 mg/dL (200); Creatinine, Serum 0.78 mg/dL (0.70-1.30); EST Glomerular Filtration Rate 112 mL/min (>60); Est Glom Filt Rate - Afr Amer 135 mL/min (>60); Globulin 3.4 g/dL (2.2-4.2); Glucose 253 mg/dL (74-106); High Density Lipoprotein 34 mg/dL; PSA,Total - Annual Screen 0.49 ng/mL (0.00-4.00); Protein, Total 7.1 g/dL (6.4-8.2); Sodium Level 137 mmol/L (136-145); Triglycerides 147 mg/dL; Very Low Density Lipoprotein 29 mg/dL (5-40)
== END | disposition home or self-care (01) ==
LOC: BFHLAB 08:55
PROVIDERS: PCP Family Medicine; Referring Provider Family Medicine; Visit Provider Family Medicine
DX: Z51.81 Encounter for therapeutic drug level monitoring (principal); E11.65 Type 2 diabetes mellitus with hyperglycemia; Z12.5 Encounter for screening for malignant neoplasm of prostate; I25.10 Atherosclerotic heart disease of native coronary artery without angina pectoris; I10 Essential (primary) hypertension
CPT/HCPCS: 36415; 80048; 80061; 80076; 83036; 84153; G0103

== ENCOUNTER 2024-06-12 06:30 | Day surgery (SDC) | payer BC, SELFPAY ==
[2017-07-25 08:38] VITALS: BMI 38.0
[2024-06-12] VITALS (7 sets, daily range): BP systolic 111–151; BP diastolic 80–95; PULSE 87–96; RESP 16–18; TEMP 36.6–37.5; O2SAT 93–94; BMI 36.4
--- NOTE | 2024-06-12 07:23 | PRE.ANES_ITS ---
ASA Classification* ASA Classification ASA Classification: 3 Assessment & Plan Anesthesia* Anesthesia Assessment Anesthesia Assessment: Discussed sedation and/or anesthesia options, risks, benefits, and alternatives with patient/parents/legal guardian/POA. Questions invited. The patient/parents/legal guardian/POA seems to understand and agrees to proceed with anesthesia plan. Reviewed the physical assessment, medical history, allergy history and patient home medications list prior to surgery/procedure/anesthetic and documented any changes. Performed airway and anesthesia risk assessments. Anesthesia Type Anesthesia Type: MAC History Source History Obtained from:: Patient and Chart Anesthesia Focused Assessment* Temperature: 97.8 F Pulse Rate: 87 Blood Pressure: 151/95 Respiratory Rate: 16 Pulse Ox: 93 Oxygen Delivery Method: Room Air Airway Assessment Mouth opens: >3 cm Mallampati Score: IV Teeth Condition: Intact Neck Range of motion (ROM): Full ROM Focused Labs Anesthesia Preop lab: CBC WBC 13.1 K/mm3 (4.4-11.0) H 07/25/17 03:40 RBC 4.32 M/mm3 (4.6-6.2) L 07/25/17 03:40 Hgb 12.6 g/dl (13.0-16.5) L 07/25/17 03:40 Hct 36.9 % (40-54) L 07/25/17 03:40 Plt Count 172 K/mm3 (150-450) 07/25/17 03:40 CHEMISTRY Potassium 4.0 mmol/L (3.5-5.1) 04/10/24 08:55 Sodium 137 mmol/L (136-145) 04/10/24 08:55 Magnesium 2.1 mg/dL (1.6-2.6) 07/26/17 05:30 BUN 16 mg/dL (7-18) 04/10/24 08:55 Creatinine 0.78 mg/dL (0.70-1.30) 04/10/24 08:55 Glucose 253 mg/dL (74-106) H 04/10/24 08:55 TSH 3.92 uIU/mL (0.358-3.74) H 09/17/17 09:09 COAG Pre-Assessment Diagnosis/Proposed Procedure Planned Operative Procedure(s): CSCOPE Anesthesia History Anesthesia History - electronic imager: Anesthesia History - electronic imager Hx Hospitalization No 06/07/24 09:52 Any Problems With Anesthesia No 06/07/24 09:52 Cholinesterase deficiency No 06/07/24 09:52 You/Your Family Experience No 06/07/24 09:52 fever (hyperthermia) with Relationship Recent Exposure to Contagious No 06/12/24 06:51 Disease Does patient have nerve No 06/07/24 09:52 stimulator Patient instructed to have device shut off --Does patient have Pacemaker No 06/12/24 06:51 or ICD? When Was Last Pacemaker Check QUESTION #4 FULL TEXT: You/Your Family Experience fever (hyperthermia) with Anesthesia Last Oral Intake Last Oral intake: Last Oral Intake NPO since 00:00 06/12/24 06:51 Meds taken in AM with sips of No 06/12/24 06:51 water? Meds patient instructed to take am of surgery Any additional information?: No PONV PONV - electronic imager: PONV - electronic imager Female No 06/07/24 09:52 HX of Motion Sickness No 06/07/24 09:52 HX of N/V After Surgery No 06/07/24 09:52 Non-Smoker Yes 06/07/24 09:52 Duration of Surgery greater No 06/07/24 09:52 than 60 minutes Number of Risk Factors 1 06/07/24 09:52 PONV Score Low Risk 06/07/24 09:52 Height & Weight Height & Weight: Anesthesia: Height & Weight Height 5 ft 9 in 06/12/24 06:51 Weight: 111.9 kg 06/12/24 06:51 Body Mass Index (BMI) 36.4 06/12/24 06:51 Respiratory Assessment Respiratory Assessment - electronic imager: Respiratory Tract Infection Hx - electronic imager Hx Respiratory Tract Infection No 06/07/24 09:52 Any additional information?: Yes Hx Respiratory Tract Infection: Yes (Patient states he has been congested in the past week but better now.) STOP Sleep Apnea STOP Sleep Apnea - electronic imager: STOP Sleep Apnea - electronic imager Hx Hypertension Yes: CONTROLLED WITH MED 06/07/24 09:52 Hx Sleep Apnea No 06/07/24 09:52 CPAP BIPAP Do you snore loudly (louder Yes 06/07/24 09:52 than talking or can be heard Do you often feel tired/ No 06/07/24 09:52 fatigued/ sleepy during daytime? Has anyone observed you stop No 06/07/24 09:52 breathing during sleep? STOP Results Positive 06/07/24 09:52 QUESTION #5 FULL TEXT : Do you snore loudly (louder than talking or can be heard through closed doors)? 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 Specify any problems Hx of Preganancy in last 3 N/A 06/07/24 09:52 Months Nurse Filling Out Transfusion DSCHRIBER 06/07/24 09:52 & Questions: Date: 06/07/24 06/07/24 09:52 Time: 09:54 06/07/24 09:52 Patient unable to answer at this time (ie. confused, unrespo /Reproduction History /Reproductive History - electronic imager: /Reproductive Hx- electronic imager Hx Now No 06/07/24 09:52 Gestational Age (in weeks): EDC: Hx Hx Para Hx Section SAB No 06/07/24 09:52 PFSH Medical History Wears contact lenses Diabetes Dietary restriction Gastric reflux Non-smoker History of echocardiogram Cardiology follow-up encounter Presence of stent in coronary artery (~07/24/17) Pure hypercholesterolemia Essential hypertension NSVT (nonsustained ventricular tachycardia) Atherosclerotic heart disease of [place] coronary artery without angina pectoris NSTEMI (non-ST elevated myocardial infarction) HLD (hyperlipidemia) Obesity (BMI 30-39.9) HTN (hypertension) Screen for colon cancer Family history of colon cancer Home Medications ?Medication ?Instructions ?Recorded ?Last Taken ?Type aspirin 81 mg tablet,delayed 81 mg PO DAILY@0800 07/26/17 Unknown Rx release nitroglycerin 0.4 mg sublingual 0.4 mg sublingual Q5M PRN Chest 07/26/17 Unknown Rx tablet Pain #20 tabs cholecalciferol (vitamin D3) 50 2,000 unit PO DAILY 12/18/18 Unknown History mcg (2,000 unit) tablet atorvastatin 80 mg tablet 80 mg PO QHS #90 tabs 06/15/23 Unknown Rx carvedilol 6.25 mg tablet 6.25 mg PO BID #180 tabs 08/29/23 Unknown Rx lisinopril 20 mg tablet 20 mg PO DAILY #90 tabs 08/29/23 Unknown Rx glipizide 5 mg tablet 5 mg PO BID 06/07/24 Unknown History metformin 1,000 mg tablet 1,000 mg PO BID 06/07/24 Unknown History multivitamin (Daily Multi-Vitamin 1 tab PO DAILY 06/07/24 Unknown History tablet) Allergy/AdvReac Type Severity Reaction Status Date / Time No Known Allergies Allergy Verified 06/12/24 06:51 Family History Mother Diabetes Hypertension Father Cardiac tumor Sister Hypertension Colon cancer Diabetes Sister Hypertension Surgical History History of cardiac catheterization Hx of wisdom tooth extraction Presence of coronary angioplasty implant and graft (~07/24/17) Hx of colonoscopy Social History Smoking Status: Never smoker alcohol intake: never substance use type: does not use caffeine: Yes Type: coffee Number of servings: 1 Review of Systems (Anesthesia) ROS Narrative System reviewed and no additional complaints, except as documented.
[2024-06-12 07:27] LABS: Bedside Glucose 203 mg/dL (74-106)
--- NOTE | 2024-06-12 07:28 | HP.PCM_ITS ---
History and Physical Date of Admission: 06/12/24 Intake Vital Signs 07/08/2407:30 05/01/2408:30 Height 5 ft 9 in 5 ft 8 in Weight: 250 lb 248 lb BMI 36.9 37.7 BP 118/86 H 129/93 H Blood Pressure Location Lt brachial Rt brachial Position Sitting Sitting Respiration 16 18 Pulse 73 80 Pulse Source Monitor Monitor Temp 97.8 F Temp Source Temporal Pulse Oximetry (%) 96 Oxygen Delivery Method room air Intake Visit Reasons: SCREENING COLONOSCOPY Chief Complaint: screening colonoscopy Is patient in pain?: No Allergies No Known Allergies Allergy (Verified 05/01/24 08:31) Medications ?Medication ?Instructions ?Recorded ?Confirmed ?Type aspirin 81 mg tablet,delayed 81 mg PO DAILY@0800 07/26/17 05/01/24 Rx release nitroglycerin 0.4 mg sublingual 0.4 mg sublingual Q5M PRN Chest 07/26/17 05/01/24 Rx tablet Pain #20 tabs cholecalciferol (vitamin D3) 50 2,000 unit PO DAILY 12/18/18 05/01/24 History mcg (2,000 unit) tablet atorvastatin 80 mg tablet 80 mg PO QHS #90 tabs 06/15/23 05/01/24 Rx carvedilol 6.25 mg tablet 6.25 mg PO BID #180 tabs 08/29/23 05/01/24 Rx lisinopril 20 mg tablet 20 mg PO DAILY #90 tabs 08/29/23 05/01/24 Rx PFSH Medical History (Updated 05/01/24 @ 08:[address] Jerry Coy MD) Family history of colon cancer Presence of stent in coronary artery (~07/24/17) Pure hypercholesterolemia Essential hypertension NSVT (nonsustained ventricular tachycardia) Atherosclerotic heart disease of [place] coronary artery without angina pectoris NSTEMI (non-ST elevated myocardial infarction) HLD (hyperlipidemia) Obesity (BMI 30-39.9) HTN (hypertension) Screen for colon cancer Surgical History Presence of coronary angioplasty implant and graft (~07/24/17) Hx of colonoscopy Family History Mother Diabetes HypertensionFather Cardiac tumorSister Hypertension Colon cancer DiabetesSister Hypertension Social History Smoking Status: Never smoker alcohol intake: never substance use type: does not use caffeine: Yes Type: coffee Number of servings: 1 HPI HPI HPI: Patient is a 53-year-old male here for screening colonoscopy. His last colonoscopy was 7 years ago. He was recommended to come back in 5 due to family history. ROS General General: No weight change, appetite, fatigue, colon cancer, breast cancer or weakness HEENT HEENT: No difficulty swallowing, eye injury, eye surgery, swollen glands or hoarseness Endo Endocrine: No thyroid disease, diabetes mellitus, thyroid cancer, Hair loss, heat intolerance or cold intolerance Skin Skin: No rash or changing moles Musc Musculoskeletal: No back problems, arthritis, rheumatoid arthritis, gout or joint pain Cardio Cardiovascular: Yes high blood pressure, heart attack and heart stent; No murmur, pacemaker, heart disease, atrial fibrillation, palpitations, shortness of breat with exertion or chest pain Psych Psychiatric: No depression, anxiety or hearing voices Resp Respiratory: No shortness of breath, Yes sleep apnea, No cough, No COPD, No asthma, No emphysema and No wheezing Gastro Gastrointestinal: No abdominal pain, No nausea or vomiting, Yes diarrhea, No constipation, No blood in stool, Yes acid reflux, No hemorrhoids, No ulcers, No gallbladder problem and No black,tarry stools Hussein Hematologic: Yes blood thinners, No blood disorders, No bleeding, No anemia and No blood clots Additional Details: baby aspirin Neuro Neurologic: Yes numbness, Yes tingling and No weakness Exam Const General: cooperative Orientation: alert and oriented x3 HENMT Head: normal to inspection Neck Neck: normal visual inspection and full ROM Chest Chest palpation & inspection: normal inspection of the chest Resp Effort & Inspection: normal respiratory effort Auscultation: clear to auscultation bilaterally Cardio Rate: regular rate Rhythm: regular rhythm GI Inspection: non-distended Palpation: soft and nontender Skin General: no rashes or lesions noted Neuro General: patient alert and patient oriented x3 Extrem General: full ROM Psych Appearance: grossly normal Mental Status: mental status grossly normal Assessment and Plan Assessment and Plan (1) Family history of colon cancer: Status: Acute Plan: Patient is overdue for colonoscopy due to family history of colon cancer in his sister. I explained endoscopy in detail to the patient. I explained the risks including but not limited to stroke or heart attack with anesthesia, perforation of the GI tract, bleeding, infection. I explained that any of these could necessitate further emergency surgery. The patient understands and all questions were answered sufficiently. The patient wishes to proceed with procedure. Jerry Coy MD Pager: [facility] [address] [place] [address] [address] [place] [address] Office: I have examined the patient and the H&P has been reviewed. There are no clinical changes since date of exam.
--- NOTE | 2024-06-12 08:16 | OP.CCLET_ITS ---
06/12/2024 Wilner Sorto [address] [place] [address] Re : Colonoscopy procedure for Lakhwinder Israel Dear Dr. Sorto This procedure was performed on Wednesday, June 12, 2024. My impressions and recommendations are as follows: Impressions : - The entire examined colon is normal on direct and retroflexion views. - No specimens collected. Recommendations : - Discharge patient to home. - Resume previous diet. - Continue present medications. - Repeat colonoscopy in 5 years for surveillance. My findings are described in the full procedure note, which is enclosed. If I can be of further assistance, please feel free to contact me at Doctor phone number(s): , Work: . Sincerely, Jerry Coy MD 06/12/2024 8:15:46 AM This report has been signed electronically.
--- NOTE | 2024-06-12 08:16 | OP.COLON_ITS ---
Patient Name: Lakhwinder Israel Procedure Date: 06/12/2024 7:52 AM Date of : 1970 Age: 53 Procedure: Colonoscopy Indications: Screening in patient at increased risk: Colorectal cancer in sister before age 60 Providers: Jerry Coy MD Referring MD: Wilner Sorto Medicines: Propofol per Anesthesia Patient Profile: This is a 53 year old male. Refer to note in patient chart for documentation of history and physical. Last Colonoscopy: several years ago. Complications: No immediate complications. Procedure: Pre-Anesthesia Assessment: - Prior to the procedure, a History and Physical was performed, and patient medications and allergies were reviewed. The patient's tolerance of previous anesthesia was also reviewed. The risks and benefits of the procedure and the sedation options and risks were discussed with the patient. All questions were answered, and informed consent was obtained. Prior Anticoagulants: The patient has taken no anticoagulant or antiplatelet agents. After reviewing the risks and benefits, the patient was deemed in satisfactory condition to undergo the procedure. After I obtained informed consent, the scope was passed under direct vision. Throughout the procedure, the patient's blood pressure, pulse, and oxygen saturations were monitored continuously. The Colonoscope was introduced through the anus and advanced to the cecum, identified by appendiceal orifice and ileocecal valve. The colonoscopy was performed without difficulty. The patient tolerated the procedure well. The quality of the bowel preparation was good. The ileocecal valve, appendiceal orifice, and rectum were photographed. Scope In: 7:54:37 AM Scope Withdrawal Time 0 hours 7 minutes 1 second Scope Out: 8:06:28 AM Total Procedure Duration Time 0 hours 11 minutes 51 seconds Findings: The entire examined colon appeared normal on direct and retroflexion views. Impression: - The entire examined colon is normal on direct and retroflexion views. - No specimens collected. Recommendation: - Discharge patient to home. - Resume previous diet. - Continue present medications. - Repeat colonoscopy in 5 years for surveillance. Procedure Code(s): --- Professional --- 63196, Colonoscopy, flexible; diagnostic, including collection of specimen(s) by brushing or washing, when performed (separate procedure) Diagnosis Code(s): --- Professional --- Z80.0, Family history of malignant neoplasm of digestive organs CPT copyright 2021 [employer]. All rights reserved. The codes documented in this report are preliminary and upon surgical specialist review may be revised to meet current compliance requirements. Jerry Coy MD 06/12/2024 8:15:46 AM This report has been signed electronically. Number of Addenda: 0 Note Initiated On: 06/12/2024 7:52 AM
--- NOTE | 2024-06-12 08:25 | PCM.POST.ANE ---
Anesthesia: Postop Eval I Current Vital Signs Temperature: 97.9 F Pulse Rate: 96 Blood Pressure: 114/88 Respiratory Rate: 18 Pulse Ox: 94 Assessment Airway patent: Yes Spontaneous unlabored respirations: Yes nausea: No Vomiting: No Anesthesia Complication: No Fluid Hydration Crystalloid volume administer (ml): 10 Total IV fluid infused: 10 Progress Note Anesthesia document: Postop Eval 1 completed: No
--- NOTE | 2024-06-12 09:13 | PCM.POSTANE2 ---
Anesthesia Postop Eval I Sum Postop Eval Completion status Anesthesia document: Postop Eval 1 completed: No Anesthesia Postop Eval I Summary Anesthesia Postop Eval I Summary: Anesthesia Postop Eval I: Assessment Summary Airway patent Yes 06/12/24 08:31 Spontaneous unlabored Yes 06/12/24 08:31 respirations Mental status nausea No 06/12/24 08:31 Vomiting No 06/12/24 08:31 Anesthesia Postop Eval I: Fluid Summary Crystalloid volume administer 10 06/12/24 08:31 (ml) Colloids volume administered ( ml) Blood Product volume administered (ml) Total IV fluid infused 10 06/12/24 08:31 Anesthesia Postop Eval I: Summary Notes Anesthesia Complication No 06/12/24 08:31 Anesthesia Complication Comment: Post-operative progress note Anesthesia: Postop Eval II Evaluation Mental status: Awake Pain Level: 0 nausea: No Vomiting: No
== END 2024-06-12 08:48 | disposition home or self-care (01) ==
LOC: EN 06:30 → AC 06:31
PROVIDERS: PCP Family Medicine; Referring Provider Family Medicine; Visit Provider Surgery
PROC: 0DJD8ZZ Inspection of Lower Intestinal Tract, Via Natural or Artificial Opening Endoscopic (ICD-10-PCS; CPT 45378; principal; 2024-06-12 07:25)
DX: Z12.11 Encounter for screening for malignant neoplasm of colon (principal); E11.9 Type 2 diabetes mellitus without complications; I25.10 Atherosclerotic heart disease of native coronary artery without angina pectoris; E78.00 Pure hypercholesterolemia, unspecified; Z80.0 Family history of malignant neoplasm of digestive organs; I10 Essential (primary) hypertension; Z79.82 Long term (current) use of aspirin; Z79.899 Other long term (current) drug therapy; Z79.01 Long term (current) use of anticoagulants; Z79.84 Long term (current) use of oral hypoglycemic drugs; E66.9 Obesity, unspecified; Z95.5 Presence of coronary angioplasty implant and graft; K21.9 Gastro-esophageal reflux disease without esophagitis
CPT/HCPCS: 45378; 82962; A4216

== ENCOUNTER → 2024-08-22 | Outpatient (CLI) | payer BC, SELFPAY ==
[2017-07-25 08:38] VITALS: BMI 38.0
--- NOTE | 2024-08-22 06:18 | ECHOCS_ITS ---
Reason For Study Reason For Study: CORONARY ARTERY DISEASE Procedure This was a 2D Doppler, Color Flow transthoracic echocardiogram. The study was technically difficult. Contrast injection was performed. Exam performed in department. Left Ventricle Normal LV size. Mild concentric left ventricular hypertrophy. The left ventricular ejection fraction is 60 %. Stage 1 diastolic dysfunction. Right Ventricle Normal right ventricle. Atria The left atrium is moderately enlarged. Normal right atrium. Mitral Valve Trivial mitral valve insufficiency. Tricuspid Valve Trivial tricuspid valve insufficiency. Normal pulmonary artery pressure. Aortic Valve Trisinus/trileaflet aortic valve. Pulmonic Valve Trivial pulmonic valve insufficiency. Great Vessels Normal sized aortic root. Pericardium/Pleural No pericardial effusion. Medication 22 gauge I.V. with prn adaptor inserted into right arm. Diluted definity 1.5ml given slow IV push to enhance endocardial definition. MMode/2D Measurements & Calculations LVIDd: 4.0 cm IVSd: 1.4 cm LVOT diam: 2.0 cm LVIDs: 2.4 cm LVPWd: 1.3 cm RVDd: 3.9 cm FS: 38.6 % LVOT area: 3.3 cm2 LA dimension: 4.5 cm asc Aorta Diam: 3.3 cm LAV(MOD- bp): 33.7 ml LAV(MOD- bp) Indexed: 15.0 ml/m2 LAV(MOD- sp2): 36.5 ml LAV(MOD- sp4): 31.2 ml SV(MOD- sp4): 91.1 ml LVAd ap4: 41.8 cm2 LVAd ap2: 32.2 cm2 LVLd ap4: 9.6 cm LVLd ap2: 8.9 cm SI(MOD- sp4): 40.4 ml/m2 EDV(MOD-sp4): 150.8 ml EDV(MOD-sp2): 97.9 ml EDV(sp4-el): 155.6 ml EDV(sp2-el): 99.1 ml LVAs ap4: 23.7 cm2 LVAs ap2: 19.1 cm2 LVLs ap4: 7.9 cm LVLs ap2: 6.7 cm ESV(MOD-sp4): 59.8 ml ESV(MOD-sp2): 44.4 ml ESV(sp4-el): 60.6 ml ESV(sp2-el): 45.9 ml EF(MOD-sp4): 60.4 % EF(MOD-sp2): 54.7 % EF(sp4-el): 61.0 % SV(MOD-sp2): 53.6 ml SV(sp4-el): 94.9 ml Ao sinus diam: 3.6 cm SI(MOD-sp2): 23.8 ml/m2 Ao ST Junction: 3.0 cm LA dimension(2D): 4.0 cm LA A4 area: 13.3 cm2 RA A4 area: 10.4 cm2 TAPSE: 1.7 cm Time Measurements MV dec time: 0.19 sec Doppler Measurements & Calculations MV E max zeus: 94.8 cm/sec Lat Peak E' Zeus: 11.7 cm/sec Med Peak E' Zeus: 8.4 cm/sec MV A max zeus: 103.5 cm/sec E/E' lat: 8.1 E/E' med: 11.3 MV E/A: 0.92 Ao V2 max: 146.3 cm/sec LV V1 max: 115.0 cm/sec MV dec slope: 488.4 cm/sec2 Ao max P.6 mmHg LV V1 max P.3 mmHg Ao V2 mean: 100.7 cm/sec LV V1 mean P.3 mmHg Ao mean P.7 mmHg LV V1 mean: 88.0 cm/sec Ao V2 VTI: 29.3 cm LV V1 VTI: 22.1 cm AV (velocity ratio): 0.75 YELITZA(I,D): 2.5 cm2 YELITZA(V,D): 2.6 cm2 SV(LVOT): 72.1 ml PA V2 max: 78.0 cm/sec TR max zeus: 175.4 cm/sec TR max P.3 mmHg ECHO/Echo Complete W/ Contrast Interpretation Summary Mild concentric left ventricular hypertrophy. The left ventricular ejection fraction is 60 %. Stage 1 diastolic dysfunction. The left atrium is moderately enlarged. Ordering Physician: Gilmer Huitron MD Referring Physician: Wilner Sorto Performed By: Stacey Yee EDDY
--- NOTE | 2024-08-22 13:36 | STRESSREP ---
Stress Test Report Date: 08/22/2024 Procedure: Exercise tolerance test/imaging study Indications: Coronary artery disease Consent: Per the patient Procedure: The patient exercised on a Jacoby protocol for 7 minutes and 31 seconds achieving a peak heart rate of 164 bpm (97% predicted maximal heart rate) with a peak blood pressure 190/80 mmHg and a peak MET capacity of 10.1 METs. The baseline ECG demonstrated sinus rhythm. The peak exercise ECG demonstrated sinus tachycardia with no ischemic changes. There were no cardiac dysrhythmias pretest, during exercise, or recovery. The functional capacity was considered average. There was no complaint of chest discomfort during exercise or recovery. The examination was discontinued secondary to leg fatigue. The patient was injected with 14.8 mCi of technetium 99m Cardiolite and subsequently rest SPECT Cardiolite nuclear imaging was obtained in the horizontal long, vertical long, and short axis views. Post-exercise, the patient was injected with 44.5 mCi of technetium 99m Cardiolite and subsequently stress SPECT Cardiolite nuclear imaging was obtained in the horizontal long, vertical long, and short axis views. A gated Cardiolite study at peak stress was obtained. Rest and stress SPECT Cardiolite nuclear imaging status post realignment, normalization, and attenuation correction, demonstrates the appearance of relative uniform tracer uptake and myocardial perfusion appearing within normal limits. There is end systolic thickening and brightening. The gated Cardiolite study demonstrates myocardial thickening and inward wall motion. The reported LVEF is 62%. Impression: 1. Technically adequate (percent predicted maximal heart rate greater than 85%) exercise tolerance test 2. Peak exercise ECG with no ischemic changes 3. There were no cardiac dysrhythmias pretest, during exercise, or recovery 4. Rest and stress SPECT Cardiolite nuclear imaging demonstrate small reversible perfusion defect of the basal lateral wall suggestive of mild ischemia. 5. The gated Cardiolite study reports an LVEF of 62%. This note was generated with [employer] software. It may contain incorrect words, spelling, and punctuation that were not noted in checking the note before signing.
== END | disposition home or self-care (01) ==
LOC: CVS 06:18
PROVIDERS: PCP Family Medicine; Referring Provider Internal Medicine Cardiovascular Disease; Visit Provider Internal Medicine Cardiovascular Disease
DX: I25.10 Atherosclerotic heart disease of native coronary artery without angina pectoris (principal); I21.4 Non-ST elevation (NSTEMI) myocardial infarction; R74.8 Abnormal levels of other serum enzymes; I10 Essential (primary) hypertension; Z95.5 Presence of coronary angioplasty implant and graft
CPT/HCPCS: 78452; 93017; 93306; A9500; Q9957; A4216; C8929

== ENCOUNTER → 2024-10-24 | Outpatient (CLI) | payer BC, SELFPAY ==
[2017-07-25 08:38] VITALS: BMI 38.0
[2024-10-24 10:40] LABS: Cholesterol 131 mg/dL (<=200); High Density Lipoprotein 30 mg/dL; Low Density Lipoprotein Calc. 68 mg/dL; Triglycerides 168 mg/dL; Very Low Density Lipoprotein 34 mg/dL (5-40); cholesterol:hdl ratio screen 4.41
[2024-10-24 11:06] LABS: ALB/GLOB Ratio 1.5 RATIO (0.9-2.4); AST(SGOT) 47 U/L (<=37); Alanine Aminotransfer ALT/SGPT 65 U/L (<=46); Albumin, Serum 4.1 g/dL (3.5-5.0); Alkaline Phosphatase 146 U/L (40-129); Anion Gap 12 (5-15); BUN 10 mg/dL (4-19); BUN/Creat Ratio 14.3 RATIO (10-20); Calcium,Total 9.2 mg/dL (7.6-11.0); Carbon Dioxide 20.9 mmol/L (21.0-32.0); Chloride 104 mmol/L (98-108); Creatinine, Serum 0.69 mg/dL (0.70-1.20); EST Glomerular Filtration Rate 111 (>60); Globulin 2.7 g/dL (2.2-4.2); Glucose 204 mg/dL (70-99); Potassium 4.3 mmol/L (3.3-5.1); Protein, Total 6.8 g/dL (5.9-8.4); Sodium Level 137 mmol/L (133-145); Total Bilirubin 0.51 mg/dL (0.00-1.30)
== END | disposition home or self-care (01) ==
LOC: LAB 09:06
PROVIDERS: PCP Family Medicine; Referring Provider Internal Medicine Cardiovascular Disease; Visit Provider Internal Medicine Cardiovascular Disease
DX: I10 Essential (primary) hypertension (principal); I20.0 Unstable angina; E11.9 Type 2 diabetes mellitus without complications; E78.00 Pure hypercholesterolemia, unspecified
CPT/HCPCS: 36415; 80053; 80061

== ENCOUNTER → 2025-04-11 | Outpatient (CLI) | payer BC, SELFPAY ==
[2017-07-25 08:38] VITALS: BMI 38.0
[2025-04-11 08:52] LABS: Hematocrit 41.3 % (40-54); Hemoglobin 14.3 g/dL (13.0-16.5); Immature Granulocytes Count 0.030 X10^3/uL (0.0-0.0); Mean Corp Hgb Conc 34.6 g/dL (32-36); Mean Corpuscular Volume 83.3 fL (80-94); Mean Platelet Vol. 9.5 fl (6.2-12.0); NRBC Flagged by Analyzer 0 % (0-5); Platelet Count 185 K/mm3 (150-450); RBC Distribution Width CV 13.5 % (11.6-14.6); RBC Distribution Width SD 40.5 fl (35.1-43.9); Red Blood Count 4.96 M/mm3 (4.6-6.2); White Blood Count 6.0 K/mm3 (4.4-11.0)
[2025-04-11 09:13] LABS: Creatinine, Urine (random) 151.00 mg/dL (39.00-259.00); Microalbumin,Random Urine < 12.0 mg/L (<20 mg/L)
[2025-04-11 09:43] LABS: AST(SGOT) 40 U/L (<=37); Alanine Aminotransfer ALT/SGPT 60 U/L (<=46); Albumin, Serum 4.1 g/dL (3.5-5.0); Alkaline Phosphatase 133 U/L (40-129); BUN 13 mg/dL (4-19); BUN/Creat Ratio 18.2 RATIO (10-20); Bilirubin, Direct 0.24 mg/dL (0.00-0.30); Calcium,Total 9.0 mg/dL (7.6-11.0); Carbon Dioxide 24.8 mmol/L (21.0-32.0); Chloride 105 mmol/L (98-108); Globulin 2.6 g/dL (2.2-4.2); Glucose 181 mg/dL (70-99); Potassium 4.1 mmol/L (3.3-5.1)
[2025-04-11 09:44] LABS: Anion Gap 10 (5-15); PSA,Total - Annual Screen 0.50 ng/mL (0.02-4.00)
[2025-04-11 11:12] LABS: Cholesterol 115 mg/dL (<=200); Low Density Lipoprotein Calc. 55 mg/dL; Triglycerides 159 mg/dL; Very Low Density Lipoprotein 32 mg/dL (5-40); cholesterol:hdl ratio screen 4.02
== END | disposition home or self-care (01) ==
LOC: LAB 07:54
PROVIDERS: PCP Family Medicine; Referring Provider Family Medicine; Visit Provider Family Medicine
DX: Z00.00 Encounter for general adult medical examination without abnormal findings (principal); E11.9 Type 2 diabetes mellitus without complications; Z12.5 Encounter for screening for malignant neoplasm of prostate
CPT/HCPCS: 36415; 80053; 80061; 82043; 82248; 82570; 83036; 84153; 85025; G0103